=== PATIENT | male | born 1980 | race Caucasian/White ===

== ENCOUNTER 2017-09-04 19:25 | Inpatient (IN) | payer MEDICAID ==
[~2017-09-04] VITALS: Ht 177.8 cm; Wt 79.4 kg
--- NOTE | 2017-09-04 19:25 | NUR ---
[facility] TO ER OF1
[2017-09-04 19:29] VITALS: BP 119/66
--- NOTE | 2017-09-04 19:29 | NUR ---
MOVED TO ER BED 11
--- NOTE | 2017-09-04 19:35 | NUR ---
PATIENT IS A 37 Y/O MALE BIB PD WHO PRESENTS TO THE ED C/O ABD PAIN. PT STATES, "MY STOMACH HURTS." PT REPORTS H/O CROHN'S DISEASE. PT STATES, 9/10 SHARP PAIN ON THE LOWER ABD THAT DOES NOT RADIATE. PT REPORTS SOB, LUNG SOUNDS CLEAR BILATERALLY, 100% O2 RA. PT DENIES N/V/D, CP. PT AAOX4, RR EVEN/UNLABORED. PT REPOSITIONED FOR COMFORT, BED IN LOWEST POSITION. ER MD STEVENS SECIST NOTIFIED. WILL CONTINUE TO MONITOR.
[2017-09-04] MEDS ORDERED: KETOROLAC 60 MG/2 ML VIAL IM ONE (19:50)
[2017-09-04 20:13] LABS: BASOPHILS # (AUTO) 0.3 K/uL (0.00-0.22); EOSINOPHILS # (AUTO) 0.1 K/uL (0-0.4); HEMATOCRIT 42.6 % (36-52); HEMOGLOBIN 14.1 g/dL (12.0-18.0); MEAN CORPUSCULAR HEMOGLOBIN 29 pg (27-31); MEAN CORPUSCULAR HGB CONC 33 g/dL (33-37); MEAN CORPUSCULAR VOLUME 87 fL (80-94); MONOCYTES # (AUTO) 0.5 K/uL (0.8-1.0); NEUTROPHILS # (AUTO) 3.8 K/uL (1.8-7.7); PLATELET COUNT (AUTO) 199 K/uL (140-450); RED BLOOD CELL COUNT(AUTO) 4.88 MIL/uL (4.20-6.10); RED CELL DISTRIBUTION WIDTH 13.6 % (11.6-13.7); WHITE BLOOD COUNT (AUTO) 5.7 K/uL (4.8-10.8)
[2017-09-04 20:24] LABS: ANION GAP 7.4 (8-16); CARBON DIOXIDE 32.2 mmol/L (21-32); CREATININE 0.9 mg/dL (0.7-1.3); POTASSIUM 3.6 mmol/L (3.5-5.1)
[2017-09-04 20:39] LABS: ALBUMIN 3.9 g/dL (3.4-5.0); TOTAL BILIRUBIN 0.3 mg/dL (0.0-1.0)
[2017-09-04] MEDS ORDERED: NACL 0.9% 1,000 ML IV ONE ×2 (21:25)
[2017-09-04] MEDS: POTASSIUM CHL 20 MEQ/D5-1/2NS 1,000 ML IV SCH (21:35)
[2017-09-04] MEDS ORDERED: HYDROcodone/APAP 7.5/325 MG 1 TAB PO PRN (21:35)
[2017-09-04] MEDS ORDERED: DOCUSATE SODIUM 100 MG GELCAP PO PRN (21:35)
[2017-09-04] MEDS ORDERED: ACETAMINOPHEN 325 MG TAB PO PRN (21:35)
[2017-09-04] MEDS ORDERED: ONDANSETRON 4 MG/2 ML VIAL IM/IVP PRN (21:35)
[2017-09-04] MEDS ORDERED: KETOROLAC 30 MG/ML VIAL IVP PRN (21:35)
[2017-09-04] MEDS ORDERED: MORPHINE SULFATE 4 MG/ML SYR IVP ONE (21:45)
[2017-09-04] MEDS ORDERED: PANTOPRAZOLE 40 MG TABEC PO SCH (21:45)
[2017-09-04] MEDS ORDERED: ONDANSETRON 4 MG/2 ML VIAL IVP ONE (21:45)
[2017-09-04 22:27] LABS: PROTHROMBIN TIME 10.2 secs (10.8-13.4)
--- NOTE | 2017-09-04 22:40 | NUR ---
Patient will be admitted to care of DR. PALOMO. Admited to TELE. Will go to [id number]. Belongings list completed. Report to GUILLERMO GROSSMAN.
--- NOTE | 2017-09-04 22:42 | NUR ---
PT TAKEN TO THE FLOOR
[2017-09-04 22:45] VITALS: BP 104/70
--- NOTE | 2017-09-04 22:45 | NUR ---
Admitted from ER, with chief complaint of ABD PAIN, DX ACUTE PANCREATITIS; 37 y/o, Male, COOPERATIVE BUT ANXIOUS AT TIMES PT C/O ABD PAIN. SEE PAIN ASSESSMENT. PT ALREADY MEDICATED IN ER, WILL MONITOR PT AND PAIN. PT DENIES NAUSEA AT THIS TIME. CD MIXER HELPER IN PLACE. ABD SOFT, NO REBOUND TENDERNESS, BOWEL SOUNDS ACTIVE, PT REPORTS LBM 09/04/17 MORNING. IV ACCESS ASYMPTOMATIC, PATENT AND INTACT. IVF FROM ER STILL INFUSING AT THIS TIME. DISCUSSED AND REVIEWED PLAN OF CARE WITH PT. PT VERBALIZED UNDERSTANDING. oriented to call light, bed, phone,television, bathroom, smoking policy, visiting hours, procedures, ID bracelet on. Belongings list checked. ALL NEEDS MET. IVF INFUSING WELL. SAFETY MEASURES ENSURED. CALL LIGHT WITHIN REACH. WILL CONTINUE TO MONITOR.
[2017-09-04] MEDS ORDERED: METF500T PO (22:52)
[2017-09-04] MEDS ORDERED: PRED20TA5 PO (22:52)
[2017-09-04] MEDS ORDERED: LORazepam 1 MG TAB PO PRN (23:20)
[2017-09-04] MEDS ORDERED: INSULIN LISPRO SLIDING SCALE 100 UNITS/ML VIAL SUBQ PRN (23:40)
[2017-09-05] VITALS: BP 100/68
[2017-09-05] MEDS: BLOOD GLUCOSE MONITORING 1 DEV DEV FS SCH ×5 (00:12→20:52)
--- NOTE | 2017-09-05 00:12 | NUR ---
BLOOD SUGAR 87, NO INSULIN COVERAGE NEEDED. PT RESTING COMFORTABLY, NO S/S OF ACUTE DISTRESS. ALL NEEDS MET. IVF INFUSING WELL. SAFETY MEASURES ENSURED. CALL LIGHT WITHIN REACH. WILL CONTINUE TO MONITOR.
--- NOTE | 2017-09-05 03:30 | NUR ---
PT SLEEPING COMFORTABLY, AROUSABLE BY NAME, NO S/S OF ACUTE DISTRESS. ALL NEEDS MET. IVF INFUSING WELL. SAFETY MEASURES ENSURED. CALL LIGHT WITHIN REACH. WILL CONTINUE TO MONITOR.
[2017-09-05 04:00] VITALS: BP 108/57
[2017-09-05 05:43] LABS: HEMATOCRIT 41.3 % (36-52); HEMOGLOBIN 13.7 g/dL (12.0-18.0); MEAN CORPUSCULAR HEMOGLOBIN 29 pg (27-31); MEAN CORPUSCULAR HGB CONC 33 g/dL (33-37); MEAN CORPUSCULAR VOLUME 88 fL (80-94); PLATELET COUNT (AUTO) 181 K/uL (140-450); RED CELL DISTRIBUTION WIDTH 13.8 % (11.6-13.7); WHITE BLOOD COUNT (AUTO) 5.8 K/uL (4.8-10.8)
[2017-09-05 06:00] LABS: ANION GAP 5.3 (8-16); CARBON DIOXIDE 30.5 mmol/L (21-32); CREATININE 0.8 mg/dL (0.7-1.3); POTASSIUM 3.8 mmol/L (3.5-5.1)
[2017-09-05] MEDS: POTASSIUM CHL 20 MEQ/D5-1/2NS 1,000 ML IV SCH (06:14)
--- NOTE | 2017-09-05 06:14 | NUR ---
PT SLEEPING COMFORTABLY, AROUSABLE BY NAME, NO S/S OF ACUTE DISTRESS. BLOOD SUGAR CHECKED, 76; NO INSULIN COVERAGE NEEDED. ALL NEEDS MET. IVF INFUSING WELL. SAFETY MEASURES ENSURED. CALL LIGHT WITHIN REACH. WILL CONTINUE TO MONITOR.
[2017-09-05 07:10] LABS: EOSINOPHILS % (MANUAL) 2 % (0-4); LYMPHOCYTES % (MANUAL) 40 % (20-46); MONOCYTES % (MANUAL) 4 % (5-12)
--- NOTE | 2017-09-05 07:20 | NUR ---
ENDORSED PLAN OF CARE TO AM NURSE. CONDITION STABLE.
--- NOTE | 2017-09-05 07:28 | NUR ---
RECEIVED PT IN BED. ASLEEP. AROUSABLE TO VOICE. ALERT ORIENTEDX4. NO SOB NOTED. DENIES ANY PAIN OR DISCOMFORT AT THIS TIME. PT AMBULATORY. SAFETY PRECAUTION IN PLACE. CALL LIGHT WITHIN REACH. NO URINARY OUTPUT YET. WILL COLLECT URINE SPECIMEN FOR CULTURE AND DRUG SCREEN.
[2017-09-05 08:00] VITALS: BP 112/68
[2017-09-05] MEDS: predniSONE 20 MG TAB PO SCH (08:14)
[2017-09-05] MEDS: MORPHINE SULFATE 2 MG/ML SYR IVP PRN ×3 (08:14→20:52)
[2017-09-05] MEDS: PANTOPRAZOLE 40 MG TABEC PO SCH (08:14)
[2017-09-05] MEDS ORDERED: NACL 0.9% 1,000 ML IV SCH (08:45)
[2017-09-05] MEDS ORDERED: PANTOPRAZOLE 40 MG INJ VIAL IVP SCH (09:00)
[2017-09-05 09:27] LABS: CHOL/HDL RATIO 2.5 (1-4.5); FREE T4 (FREE THYROXINE) 0.89 ng/dL (0.76-1.46); MAGNESIUM 2.2 mg/dL (1.8-2.4); PHOSPHORUS 3.6 mg/dL (2.5-4.9); THYROID STIMULATING HORMONE 1.16 uIU/mL (0.34-3.74)
--- NOTE | 2017-09-05 09:41 | NUR ---
PATIENT HAS BEEN SCREENED AND CATEGORIZED MODERATE NUTRITION RISK. PATIENT WILL BE SEEN WITHIN 3-5 DAYS OF ADMISSION. 09/07/17-09/09/[address]
--- NOTE | 2017-09-05 10:14 | NUR ---
FOLLOWED UP WITH PT REGARDING URINE SPECIMEN. PT VERBALIZED HE DOESN'T FEEL THE NEED TO VOID YET.
--- NOTE | 2017-09-05 11:08 | NUR ---
ION NOTE SPOKE WITH DREA OF [facility]# [phone] OPTION 1,1,2. PER DREA, REVIEWS SHOULD ONLY BE SENT TO [facility] AND NOT TO [facility] BECAUSE [facility] PROCESSES THE AUTHORIZATION . SHE ALSO SAID THAT THERE IS NO ASSIGNED WAITER/WAITRESS DINING CAR YET AND TO SEND THE FACESHEET AND REVIEW TO [facility] FAX# [phone]. INITIAL REVIEW AND FACESHEET SENT TO [facility] FAX# [phone] # [phone] OPTION 1,1,2
--- NOTE | 2017-09-05 11:35 | NUR ---
DR. AMOS MADE AWARE OF LOW BLOOD SUGAR LEVEL OF 63MG/DL. MD TO PUT IN ORDER. PT AWAKE. ALERT. DENIES ANY PAIN OR DISCOMFORT AT THIS TIME.
[2017-09-05] MEDS: DEXTROSE 50% 50 ML SYR IVP PRN (11:44)
--- NOTE | 2017-09-05 12:30 | NUR ---
BLOOD SUGAR WAS CHECKED WITH A RESULT OF 135MG/DL. PT AWAKE ALERT ORIENTEDX4. URINE SPECIMEN COLLECTED FOR URINALYSIS AND DRUG SCREEN. SENT TO LAB.
[2017-09-05] MEDS: DEXT 5% /NACL 0.9% 1,000 ML IV SCH ×3 (12:37→22:30)
[2017-09-05 13:20] LABS: BILIRUBIN,URINE NEGATIVE (NEGATIVE); BLOOD, URINE NEGATIVE (NEGATIVE); COLOR,URINE YELLOW (YELLOW); LEUKOCYTE ESTERASE ,URINE NEGATIVE (NEGATIVE); NITRITE, URINE NEGATIVE (NEGATIVE); PH,URINE 6.5 (5.0-9.0); UGLUCOSE 1+ (NEGATIVE)
[2017-09-05 13:23] LABS: BARBITURATE, URINE NEG. ng/ml (NEG <=200); BENZODIAZEPINE, URINE NEG. ng/mL (NEG <=200); CANNABINOID, URINE POS. ng/mL (NEG <=50); COCAINE, URINE NEG. ng/mL (NEG <=300); OPIATE, URINE POS. ng/mL (NEG <=2000); PHENCYCLIDINE SCREEN,URINE NEG. ng/mL (NEG <=25)
[2017-09-05 13:49] LABS: APPEARANCE,URINE HAZY (CLEAR)
--- NOTE | 2017-09-05 14:17 | NUR ---
ION OCHOA SPOKE WITH ION WOLFE OF [facility] # [phone] AND SHE SAID TO FAX FURTHER REVIEWS TO HER AT [phone]. FAXED FACESHEET AND INITIAL REVIEW TO [facility] [phone]. PER ION WOLFE, [facility] WANTS TO TRANSFER PATIENT TO ONE OF THEIR CAPITATED FACILITIES. I PROVIDED HER WITH THE NUMBER TO THE CHARGE NURSE OF THE NURSING FLOOR WHERE PATIENT IS IN CASE A BED BECOMES AVAILABLE AT A LATER TIME TODAY. I INFORMED DR. CHANEL AMOS AND HE SAID PATIENT IS STABLE FOR TRANSFER TO CAPITATED FACILITY. [facility] WAS PROVIDED WITH THE PAGER NUMBER OF DR. Casey AMOS FOR DOCTOR TO DOCTOR REPORT. I WENT TO SEE PATIENT BEDSIDE TWICE TO INFORM HIM BUT PATIENT WAS SLEEPING. CHARGE NURSE MICHAEL MTZ.
[2017-09-05 16:00] VITALS: BP 101/57
--- NOTE | 2017-09-05 19:27 | NUR ---
PT KEPT CLEAN, DRY AND COMFORTABLE, NEEDS ATTENDED. ENDORSED TO NEXT SHIFT, PT ON STABLE CONDITION, FOR CONTINUITY OF CARE.
--- NOTE | 2017-09-05 19:30 | NUR ---
RECEIVED REPORT FROM AM NURSE. PT RESTING IN BED, AOX4, AMBULATORY, ABLE TO VERBALIZE NEEDS. PT DENIES CHEST PAIN, SOB OR S/S OF ACUTE DISTRESS. PT REPORTS BEING ABLE TO TOLERATE CLEAR LIQUID DIET, DENIES NAUSEA AT THIS TIME BUT REPORTS PERSISTENT ABD PAIN, SEE PAIN ASSESSMENT, WILL MEDICATE ORDERED. ABD SOFT, NO REBOUND TENDERNESS, BOWEL SOUNDS ACTIVE, REPORTS LBM 09/04/17. IV ACCESS ASYMPTOMATIC, PATENT AND INTACT. IVF FROM ER STILL INFUSING AT THIS TIME. DISCUSSED AND REVIEWED PLAN OF CARE WITH PT. PT VERBALIZED UNDERSTANDING. ALL NEEDS MET. SAFETY MEASURES ENSURED. CALL LIGHT WITHIN REACH. WILL CONTINUE TO MONITOR.
[2017-09-05 20:00] VITALS: BP 118/69
--- NOTE | 2017-09-05 21:01 | NUR ---
PT C/O PAIN. SEE PAIN ASSESSMENT. ADMINISTERED MORPHINE IVP PRN ORDERED WITH EDUCATION. INSULIN COVERAGE ADMINISTERED WITH EVENING SNACK. PT VERBALIZED UNDERSTANDING, TOLERATED MEDS WELL. ALL NEEDS MET. IVF INFUSING WELL. SAFETY MEASURES ENSURED. CALL LIGHT WITHIN REACH. WILL CONTINUE TO MONITOR.
[2017-09-06] VITALS: BP 104/53
--- NOTE | 2017-09-06 02:14 | NUR ---
PT SLEEPING COMFORTABLY, NO S/S OF ACUTE DISTRESS. ALL NEEDS MET. IVF INFUSING WELL. SAFETY MEASURES ENSURED. CALL LIGHT WITHIN REACH. WILL CONTINUE TO MONITOR.
[2017-09-06 05:20] VITALS: BP 104/53
[2017-09-06] MEDS: MORPHINE SULFATE 2 MG/ML SYR IVP PRN ×4 (05:23→23:34)
--- NOTE | 2017-09-06 05:30 | NUR ---
PT C/O ABD PAIN. SEE PAIN ASSESSMENT. ADMINISTERED MORPHINE IVP PRN ORDERED WITH EDUCATION. PT VERBALIZED UNDERSTANDING, TOLERATED MED WELL. ALL NEEDS MET. IVF INFUSING WELL. SAFETY MEASURES ENSURED. CALL LIGHT WITHIN REACH. WILL CONTINUE TO MONITOR.
[2017-09-06 05:45] LABS: BASOPHILS # (AUTO) 0.3 K/uL (0.00-0.22); BASOPHILS % (AUTO) 3.7 % (0.0-2.0); EOSINOPHILS # (AUTO) 0.1 K/uL (0-0.4); EOSINOPHILS % (AUTO) 1.1 % (0.0-4.0); HEMOGLOBIN 14.3 g/dL (12.0-18.0); LYMPHOCYTES # (AUTO) 2.4 K/uL (2.0-11.5); LYMPHOCYTES % (AUTO) 28.2 % (20.5-51.1); MEAN CORPUSCULAR HEMOGLOBIN 30 pg (27-31); MEAN CORPUSCULAR HGB CONC 34 g/dL (33-37); MEAN CORPUSCULAR VOLUME 87 fL (80-94); MONOCYTES # (AUTO) 0.8 K/uL (0.8-1.0); NEUTROPHILS # (AUTO) 4.7 K/uL (1.8-7.7); PLATELET COUNT (AUTO) 176 K/uL (140-450); RED BLOOD CELL COUNT(AUTO) 4.82 MIL/uL (4.20-6.10); RED CELL DISTRIBUTION WIDTH 13.7 % (11.6-13.7); WHITE BLOOD COUNT (AUTO) 8.3 K/uL (4.8-10.8)
[2017-09-06] MEDS: BLOOD GLUCOSE MONITORING 1 DEV DEV FS SCH ×6 (06:05→21:19)
--- NOTE | 2017-09-06 06:05 | NUR ---
PT RESTING IN BED, BLOOD GLUCOSE 65. PT IS ASYMPTOMATIC, PT ALERT AND ORIENTED, ABLE TO COMMUNICATE WELL, STATING "I FEEL FINE." PT GIVEN SNACKS AND DRINKS TO GET BLOOD SUGAR UP. WILL RECHECK BLOOD GLUCOSE
[2017-09-06 06:13] LABS: ANION GAP 7.1 (8-16); CARBON DIOXIDE 28.7 mmol/L (21-32); CREATININE 0.7 mg/dL (0.7-1.3); POTASSIUM 3.8 mmol/L (3.5-5.1)
[2017-09-06] MEDS: DEXTROSE 50% 50 ML SYR IVP PRN (06:36)
--- NOTE | 2017-09-06 06:36 | NUR ---
BLOOD SUGAR RECHECKED, 60. PT IS STILL ASYMPTOMATIC. ADMINISTERED D50% IVP PRN ORDERED WITH EDUCATION. PT VERBALIZED UNDERSTANDING, TOLERATED MED WELL. WILL RECHECK BLOOD SUGAR
--- NOTE | 2017-09-06 06:55 | NUR ---
BLOOD SUGAR RECHECKED, 100. PT IS STILL ASYMPTOMATIC, CONDITION STABLE.
--- NOTE | 2017-09-06 07:15 | NUR ---
ENDORSED PLAN OF CARE TO AM NURSE. CONDITION STABLE.
--- NOTE | 2017-09-06 07:20 | NUR ---
RECEIVED PT IN BED. AWAKE. PT TALKING ON HIS PHONE. ALERT ORIENTEDX4. NO SOB NOTED. DENIES ANY PAIN OR DISCOMFORT AT THIS TIME. PT AMBULATORY. SAFETY PRECAUTION IN PLACE. CALL LIGHT WITHIN REACH.
[2017-09-06 07:55] VITALS: BP 120/75
[2017-09-06] MEDS: predniSONE 20 MG TAB PO SCH (08:05)
[2017-09-06] MEDS: PANTOPRAZOLE 40 MG TABEC PO SCH (08:06)
[2017-09-06 08:24] LABS: T4 (THYROXINE) 6.7 ug/dL (4.5-12.0)
--- NOTE | 2017-09-06 10:03 | NUR ---
CM NOTE CONCURRENT REVIEW FAXED TO [facility] [phone] # [phone]. SPOKE WITH ION WOLFE OF [facility] AND SHE SAID THEY HAVE AN ACCEPTING DOCTOR AT [facility], DR. EVI WYATT, AND THAT THEY ARE JUST WAITING FOR THE ROOM NUMBER WHERE PATIENT WILL GO TO. CHARGE NURSE TRUNG AND DR. DANDRE MTZ.
--- NOTE | 2017-09-06 10:15 | NUR ---
PT REQUESTED TO HAVE A SHOWER. PROVIDED PT WITH SHOWER NEEDS. PT SHOWERED INDEPENDENTLY.
--- NOTE | 2017-09-06 14:27 | NUR ---
ION OCHOA SPOKE WITH ION WOLFE OF [facility] TO FOLLOW UP AND SHE SAID THEY ARE JUST WAITING FOR BED AVAILABILTY ON THEIR [facility] AT THIS TIME. ION WOLFE ALSO SAID THAT SHE HAS NOT GENERATED THE AUTHORIZATION FOR THE AMBULANCE TRANSPORT YET. GAVE HER THE NUMBER TO THE NURSING FLOOR WHERE THE PATIENT IS IN CASE A BED BECOMES AVAILABLE AT A LATER TIME TODAY AND ONCE SHE HAS GENERATED THE AUTHORIZATION FOR THE AMBULANCE TRANSPORT. CHARGE NURSE TRUNG MTZ.
--- NOTE | 2017-09-06 15:27 | NUR ---
CM NOTE RECEIVED FAX FROM [employer], FOR TRANSPORT: AMBULANCE AUTH# [id number] FOR [facility] PH# [phone] FAX# [phone], TO SET UP ONCE A BED AVAILABLE. CHARGE NURSE TRUNG MTZ.
[2017-09-06 16:00] VITALS: BP 106/53
--- NOTE | 2017-09-06 19:39 | NUR ---
PT KEPT CLEAN, DRY AND COMFORTABLE. NEEDS ATTENDED. ENDORSED TO NEXT SHIFT, PT ON STABLE CONDITION. FOR CONTINUITY OF CARE.
--- NOTE | 2017-09-06 19:40 | NUR ---
RECEIVED REPORT FROM DAY SHIFT RN, PT IS A/OX4, ON ROOM AIR. INTACT SKIN. 20G IV TO LEFT AC SALINE LOCKED. PT IS AMBULATORY WITH STEADY GAIT. SAFETY PRECAUTIONS IN PLACE. UPDATED BOARD. DISCUSSED PLAN OF CARE WITH PT, PT VERBALIZED UNDERSTANDING. VITAL SIGNS WITHIN NORMAL LIMITS. BED IN LOW POSITION, CALL LIGHT WITHIN REACH. WILL CONTINUE TO MONITOR.
--- NOTE | 2017-09-06 23:35 | NUR ---
PATIENT C/O 8/10 ABDOMINAL PAIN, MEDICATED WITH MORPHINE. WILL REASSESS PAIN IN 30MIN. PT IN STABLE CONDITION, NO SIGNS OF DISTRESS NOTED. BED IN LOW POSITION, CALL LIGHT WITHIN REACH. WILL CONTINUE TO MONITOR.
[2017-09-07] VITALS: BP 104/61
[2017-09-07] MEDS: BLOOD GLUCOSE MONITORING 1 DEV DEV FS SCH ×2 (06:34→11:52)
[2017-09-07] MEDS: DEXTROSE 50% 50 ML SYR IVP PRN (06:35)
--- NOTE | 2017-09-07 06:35 | NUR ---
BLOOD SUGAR IS 75, PER ORDER FOR BLOOD SUGAR BELOW 90, ADMINISTERED DEXTROSE IV PUSH. PT TOLERATED WELL. PT IN STABLE CONDITION, NO SIGNS OF DISTRESS NOTED. BED IN LOW POSITION, CALL LIGHT WITHIN REACH. WILL CONTINUE TO MONITOR.
--- NOTE | 2017-09-07 07:00 | NUR ---
ENDORSED PT TO DAY SHIFT RN. PT IN STABLE CONDITION.
--- NOTE | 2017-09-07 07:05 | NUR ---
RECEIVED PT REPORT AT BEDSIDE FROM NIGHT NURSE. PT IS AAOX4 AND STATES ABD PAIN AT 8/10. WILL ADMINISTER ORDERED PRN PAIN MEDICATION. PT SHOWS NO S/S OF ACUTE DISTRESS ON ROOM AIR. PATENT AND INTACT IV WAS NOTED ON THE L AC SL. DISCUSSED POC WITH PT AND HE VERBALIZED UNDERSTANDING. THE BED IS IN LOW POSITION WITH CALL LIGHT WITHIN REACH. WILL CONTINUE TO MONITOR.
[2017-09-07 07:29] VITALS: BP 105/52
[2017-09-07] MEDS: PANTOPRAZOLE 40 MG TABEC PO SCH (08:35)
[2017-09-07] MEDS: predniSONE 20 MG TAB PO SCH (08:35)
[2017-09-07] MEDS: MORPHINE SULFATE 2 MG/ML SYR IVP PRN (08:42)
--- NOTE | 2017-09-07 08:45 | NUR ---
ADMINISTERED SCHEDULED MEDICATIONS. PT TOLERATED WELL. ADMINISTERED MORPHINE 2 MG IVP FOR ABD PAIN OF 8/10. WILL REASSESS IN 30 MIN.
--- NOTE | 2017-09-07 09:30 | NUR ---
PT IS SLEEPING AND SHOWS NO S/S OF ACUTE DISTRESS ON ROOM AIR.
[2017-09-07] MEDS ORDERED: ACET-2869 PO (10:58)
--- NOTE | 2017-09-07 11:00 | NUR ---
PT IS TAKING A SHOWER.
[2017-09-07] MEDS ORDERED: DOCU-300 PO (11:04)
[2017-09-07] MEDS ORDERED: PRED20TA5 PO (11:04)
--- NOTE | 2017-09-07 11:53 | NUR ---
ALL DISCHARGE INSTRUCTIONS AND PRESCRIPTIONS WERE GIVEN. PT SIGNED ALL PAPERWORK. PATIENT WAS GIVEN HOMELESS RESOURCE PACKET, DIABETES RESOURCE, ALCOHOL AND SUBSTANCE ABUSE RESOURCE, AND LOW HEALTH CARE COST RESOURCE. ALL QUESTIONS WERE ANSWERED. PT VERBALIZED UNDERSTANDING OF CONTINUATION OF CARE. ALL BELONGINGS AND PRESCRIPTIONS IN PATIENT'S POSSESSION. IV DISCONTINUED WITH CANNULA INTACT. PT STATED " I'M GOING TO STAY FOR LUNCH AND LEAVE AFTER."
--- NOTE | 2017-09-07 12:30 | NUR ---
PT HAS BEEN DISCHARGED. PT AMB OFF UNIT WITH STEADY GAIT WITH KAIA DRY LUMBER GRADER PRESENT AT SIDE. PT IN STABLE CONDITION.
== END 2017-09-07 12:30 | disposition home or self-care (01) | DRG 282 ==
LOC: MED 19:25 → MTU 21:39
PROVIDERS: ADMIT Family Medicine; ATTEND Family Medicine
DX: K85.20 Alcohol induced acute pancreatitis without necrosis or infection (principal); D68.59 Other primary thrombophilia; K50.10 Crohn's disease of large intestine without complications; F33.1 Major depressive disorder, recurrent, moderate; F15.20 Other stimulant dependence, uncomplicated; F12.20 Cannabis dependence, uncomplicated; Y90.9 Presence of alcohol in blood, level not specified; K57.30 Diverticulosis of large intestine without perforation or abscess without bleeding; F17.210 Nicotine dependence, cigarettes, uncomplicated; E11.9 Type 2 diabetes mellitus without complications; F10.20 Alcohol dependence, uncomplicated; Z71.41 Alcohol abuse counseling and surveillance of alcoholic; Z71.51 Drug abuse counseling and surveillance of drug abuser; Z59.0 Homelessness
CPT/HCPCS: 36415; 71010; 74150; 80048; 80053; 80305; 81003; 82140; 82150; 82948; 83036; 83605; 83615; 83690; 83735; 84100; 84436; 84439; 84443; 84479; 84484; 85025; 85610; 85730; 87081; 93005; 93925; 93970; 96361; 96372; 96374; 96375; 99285; C1758; G0482; J1815; J1885; J2270; J2405; J7030; J7042; J7512; Q0092

== ENCOUNTER 2023-10-06 19:54 | Emergency (ER) | payer MEDICAID ==
[~2023-10-06] VITALS: Ht 177.8 cm; Wt 90.7 kg
[~2023-10-06 19:54] MED LIST: DOCU-300 PO; HYDR-5122 PO; METF-346 PO; PRED20TA5 PO
[2023-10-06 20:45] VITALS: BP 105/64; PULSE 66; RESP 16; TEMP 98; O2SAT 97
[2023-10-06 21:41] LABS: BASOPHILS # (AUTO) 0.1 K/uL (0.00-0.22); BASOPHILS % (AUTO) 0.8 % (0.0-2.0); EOSINOPHILS # (AUTO) 0.2 K/uL (0-0.4); EOSINOPHILS % (AUTO) 2.3 % (0.0-4.0); HEMATOCRIT 42.2 % (36-52); HEMOGLOBIN 13.9 g/dL (12.0-18.0); LYMPHOCYTES # (AUTO) 1.4 K/uL (2.0-11.5); LYMPHOCYTES % (AUTO) 21.5 % (20.5-51.1); MEAN CORPUSCULAR HEMOGLOBIN 28 pg (27-31); MEAN CORPUSCULAR HGB CONC 33 g/dL (33-37); MEAN CORPUSCULAR VOLUME 85.7 fL (80-94); MONOCYTES # (AUTO) 0.4 K/uL (0.8-1.0); MONOCYTES % (AUTO) 6.5 % (1.7-9.3); NEUTROPHILS # (AUTO) 4.6 K/uL (1.8-7.7); NEUTROPHILS % (AUTO) 68.9 % (42.2-75.2); PLATELET COUNT (AUTO) 210 K/uL (140-450); RED BLOOD CELL COUNT(AUTO) 4.93 MIL/uL (4.20-6.10); RED CELL DISTRIBUTION WIDTH 14.7 % (11.6-13.7); WHITE BLOOD COUNT (AUTO) 6.7 K/uL (4.8-10.8)
[2023-10-06 22:07] LABS: ALANINE AMINOTRANSFERASE 24 U/L (12-78); ALBUMIN 3.8 g/dL (3.4-5.0); ALKALINE PHOSPHATASE 69 U/L (50-136); ANION GAP 16.6 (8-16); ASPARTATE AMINOTRANSFERASE 19 U/L (15-37); CALCIUM 8.4 mg/dL (8.5-10.1); CARBON DIOXIDE 25.5 mmol/L (21-32); CHLORIDE 105 mmol/L (98-107); GFR ARICAN-AMERICAN 105 mL/min (>90); GFR NON ARICAN-AMERICAN 87 mL/min (>90); GLUCOSE 151 mg/dL (74-106); POTASSIUM 4.1 mmol/L (3.5-5.1); SODIUM SERUM 143 mmol/L (136-145); TOTAL BILIRUBIN 0.3 mg/dL (0.0-1.0); TOTAL PROTEIN, SERUM 6.9 g/dL (6.4-8.2); UREA NITROGEN, BLOOD 13 mg/dL (7-18)
[2023-10-06 22:14] LABS: ACETAMINOPHEN < 0.5 ug/ml (10-30); SALICYLATE < 2.8 mg/dL (2.8-20.0)
[2023-10-06 22:19] LABS: ALCOHOL, BLOOD < 3 mg/dL (<10)
[2023-10-07] MEDS ORDERED: ACETAMINOPHEN EXTRA STRENGTH 500 MG TAB PO ONE (01:05)
[2023-10-07 02:06] LABS: AMPHETAMINE, URINE POSITIVE ng/ml (NEG <=1000); BARBITURATE, URINE NEGATIVE ng/ml (NEG <=200); BENZODIAZEPINE, URINE NEGATIVE ng/mL (NEG <=200); COCAINE, URINE NEGATIVE ng/mL (NEG <=300)
[2023-10-07 02:07] LABS: CANNABINOID, URINE POSITIVE ng/mL (NEG <=50); OPIATE, URINE NEGATIVE ng/mL (NEG <=2000); PHENCYCLIDINE SCREEN,URINE NEGATIVE ng/mL (NEG <=25)
[2023-10-07] MEDS ORDERED: LORazepam 1 MG TAB PO ONE (03:50)
[2023-10-07] MEDS ORDERED: LORazepam 1 MG TAB ONE (04:59)
[2023-10-07 11:30] VITALS: BP 114/57; PULSE 66; RESP 16; TEMP 36.66960; O2SAT 98
== END 2023-10-07 11:30 ==
LOC: MED 19:54
DX: R45.851 Suicidal ideations (principal); Z20.822 Contact with and (suspected) exposure to COVID-19; F41.9 Anxiety disorder, unspecified; F43.0 Acute stress reaction; I10 Essential (primary) hypertension; Z79.899 Other long term (current) drug therapy
CPT/HCPCS: 36415; 80053; 80305; 85025; 87426; 87635; 99285; C9803; G0480; G0482

== ENCOUNTER 2023-11-02 07:53 | Emergency (ER) | payer MEDICAID ==
[~2023-11-02] VITALS: Ht 175.3 cm; Wt 72.6 kg
[2023-11-02 07:58] VITALS: BP 123/81; PULSE 114; RESP 15; TEMP 97.3; O2SAT 99
[2023-11-02] MEDS ORDERED: diazePAM 5 MG TAB PO ONE (08:45)
[2023-11-02] MEDS ORDERED: cefTRIAXone 500 MG in LIDOCAINE MPF 1% 1 ML IM ONE (08:45)
[2023-11-02] MEDS ORDERED: DOXY-690 PO (08:45)
[2023-11-02] MEDS ORDERED: LIDOCAINE MPF 1% 5 ML ONE (09:07)
[2023-11-02] MEDS ORDERED: cefTRIAXone 500 MG VIAL ONE (09:07)
[2023-11-02 10:07] VITALS: BP 123/81; PULSE 114; RESP 15; TEMP 97.3; O2SAT 99
== END 2023-11-02 10:07 | disposition home or self-care (01) ==
LOC: MED 07:53
DX: F41.9 Anxiety disorder, unspecified (principal); E11.9 Type 2 diabetes mellitus without complications; Z79.4 Long term (current) use of insulin; Z79.899 Other long term (current) drug therapy
CPT/HCPCS: 96372; 99283; J0696; J2001

== ENCOUNTER 2023-11-16 07:54 | Emergency (ER) | payer MEDICAID, OTHER ==
[~2023-11-16] VITALS: Ht 177.8 cm; Wt 84.4 kg
[~2023-11-16 07:54] MED LIST changes: +DOXY-690 PO
[2023-11-16 07:59] VITALS: BP 116/83; PULSE 73; RESP 16; TEMP 97.4; O2SAT 97
[2023-11-16] MEDS ORDERED: KETOROLAC 30 MG/ML VIAL IM ONE (08:40)
[2023-11-16] MEDS ORDERED: LORazepam 1 MG TAB PO ONE (08:40)
[2023-11-16] MEDS ORDERED: ACETAMINOPHEN EXTRA STRENGTH 500 MG TAB PO ONE (08:40)
[2023-11-16 09:01] LABS: BASOPHILS % (AUTO) 0.6 % (0.0-2.0); EOSINOPHILS # (AUTO) 0.1 K/uL (0-0.4); EOSINOPHILS % (AUTO) 3.6 % (0.0-4.0); HEMATOCRIT 39.6 % (36-52); HEMOGLOBIN 13.4 g/dL (12.0-18.0); LYMPHOCYTES # (AUTO) 1.4 K/uL (2.0-11.5); LYMPHOCYTES % (AUTO) 37.7 % (20.5-51.1); MEAN CORPUSCULAR HEMOGLOBIN 29 pg (27-31); MEAN CORPUSCULAR HGB CONC 34 g/dL (33-37); MEAN CORPUSCULAR VOLUME 85.4 fL (80-94); MONOCYTES # (AUTO) 0.3 K/uL (0.8-1.0); MONOCYTES % (AUTO) 7.5 % (1.7-9.3); NEUTROPHILS # (AUTO) 1.9 K/uL (1.8-7.7); NEUTROPHILS % (AUTO) 50.6 % (42.2-75.2); PLATELET COUNT (AUTO) 186 K/uL (140-450); RED BLOOD CELL COUNT(AUTO) 4.64 MIL/uL (4.20-6.10); RED CELL DISTRIBUTION WIDTH 14.3 % (11.6-13.7); WHITE BLOOD COUNT (AUTO) 3.8 K/uL (4.8-10.8)
[2023-11-16 09:10] LABS: CALCIUM 8.6 mg/dL (8.5-10.1); CARBON DIOXIDE 29.7 mmol/L (21-32); CREATININE 0.7 mg/dL (0.6-1.3); POTASSIUM 3.7 mmol/L (3.5-5.1)
[2023-11-16 09:30] LABS: FLU A ANTIGEN negative (NEGATIVE); FLU B ANTIGEN NEGATIVE (NEGATIVE)
[2023-11-16] MEDS ORDERED: diazePAM 5 MG TAB PO ONE (09:30)
[2023-11-16 10:11] LABS: CANNABINOID, URINE POSITIVE ng/mL (NEG <=50)
[2023-11-16 10:12] LABS: AMPHETAMINE, URINE POSITIVE ng/ml (NEG <=1000); BARBITURATE, URINE NEGATIVE ng/ml (NEG <=200); BENZODIAZEPINE, URINE POSITIVE ng/mL (NEG <=200)
[2023-11-16 10:13] LABS: COCAINE, URINE NEGATIVE ng/mL (NEG <=300); OPIATE, URINE NEGATIVE ng/mL (NEG <=2000); PHENCYCLIDINE SCREEN,URINE NEGATIVE ng/mL (NEG <=25)
[2023-11-16] MEDS ORDERED: HYDROXYZINE HYDROCHLORIDE 25 MG TAB PO PRN (15:10)
[2023-11-16 20:01] VITALS: O2SAT 97
[2023-11-16] MEDS ORDERED: QUEtiapine FUMARATE 25 MG TAB PO SCH (21:00)
[2023-11-17 07:22] VITALS: O2SAT 98
[2023-11-17 07:27] VITALS: O2SAT 98
[2023-11-17 14:39] VITALS: BP 106/66; PULSE 68; RESP 17; TEMP 97.9; O2SAT 99
== END 2023-11-17 14:39 ==
LOC: MED 07:54
DX: R45.851 Suicidal ideations (principal); Z20.822 Contact with and (suspected) exposure to COVID-19; F41.9 Anxiety disorder, unspecified; E11.9 Type 2 diabetes mellitus without complications; Z79.899 Other long term (current) drug therapy; Z79.4 Long term (current) use of insulin
CPT/HCPCS: 36415; 80048; 80305; 85025; 87426; 87804; 96372; 99285; G0482; J1885